=== PATIENT | female | born 1950 | race Caucasian/White ===

== ENCOUNTER 2025-02-15 15:26 | Emergency (ER) | payer MEDICARE, BC ==
--- NOTE | 2025-02-15 16:40 | ERPHSYRPT ---
- History of Present Illness Time Seen by Provider: 02/15/25 16:29 Source: patient, family Patient Subjective Stated Complaint: pt here for pain to right lower leg, she states pain is so bad she is unable to sleep at night well. no injury. Triage Nursing Assessment: pt alert, arrived per wc, resp easy, skin w/d/p, has slight swelling to lower right leg, no redness or swelling noted Physician History: Patient is a 74-year-old female. Some of the history is provided by the patient's daughter because the patient is very hard of hearing and does not like to talk. The patient has been complaining of right leg pain since Tuesday, 2 days ago. The patient did have to walk a longer distance than normal on Tuesday, 5 days ago, but did not start to have pain until 2 days ago. The patient's daughter is concerned that the patient is unable to sleep due to the pain. The patient is crying at night due to the pain. The patient's primary care provider instructed the patient not to take any other [id number] medications other than her diclofenac for her back and leg pain, so the patient has not taken anything else. The patient's daughter is concerned that the patient may have a blood clot. The patient has not had a blood clot in her leg or lungs before. Allergies/Adverse Reactions: No Known Drug Allergies Allergy (Verified 10/12/24 14:06) Home Medications: Amox Tr/Potass Clav. 875 mg [Augmentin 875-125 Tablet] 875 mg PO BID 01/14/24 [History] Mupirocin [Bactroban OINTMENT] 0 gm TOP TID 01/14/24 [History] Hx Tetanus, Diphtheria Vaccination/Date Given: Yes Hx Influenza Vaccination/Date Given: No Hx Pneumococcal Vaccination/Date Given: Yes Immunizations Up to Date: Yes Travel Risk - International Travel Have you traveled outside of the country in past 3 weeks: No - Emerging Infectious Disease Are you exhibiting symptoms associated with any current EIDs: No - Review of Systems Constitutional: No Fever Respiratory: No Cough, No Dyspnea, No Dyspnea on Exertion (CHARLES) Cardiac: No Chest Pain Abdominal/Gastrointestinal: No Symptoms Musculoskeletal: Other (Right lower extremity tenderness and mild swelling, neurovascularly intact) - Past Medical History Pertinent Past Medical History: No - Past Surgical History Past Surgical History: Yes Musculoskeletal: Orthopedic Surgery Other Surgical History: rt ankle with screws - Social History Smoking Status: Never smoker Exposure to second hand smoke: No Drug Use: none - Social Determinants of Health Will the patient participate in the screening: Yes Do you worry about a steady place to live?: No Do you have any problems with any of the following?: Pest (bugs,ants,or mice) In the past 12 months,have you had to go without utilities?: No Transportation Issues: No Has anyone in your support network made you feel unsafe?: No Have you or anyone in your house had to go w/o enough food: No Comment: with bed bugs - Nursing Vital Signs Nursing Vital Signs: Initial Vital Signs Blood Pressure 127/69 02/15/25 16:00 O2 Sat by Pulse Oximetry 89 L 02/15/25 16:00 Pain Scale Pain Intensity 0 - Physical Exam General Appearance: mild distress Eyes, Ears, Nose, Throat Exam: other (Very hard of hearing) Cardiovascular/Respiratory Exam: normal breath sounds, regular rate/rhythm Gastrointestinal/Abdominal Exam: non-tender, soft Hips Exam: right: pain, soft tissue tenderness Legs Exam: right leg: limited range of motion, soft tissue tenderness, swelling (Mild) Knees Exam: right knee: pain Ankle Exam: right ankle: non-tender, normal inspection Foot Exam: right foot: non-tender Neuro/Tendon Exam: normal sensation Mental Status Exam: alert Skin Exam: warm, dry SpO2 Interpretation: borderline oxygenation SpO2: 89 Ordered Tests: Active Orders 24 hr Category Date Time Status ACO SDOH Referral ONCE Cons 02/15/25 15:57 Active VENOUS UNILAT/LIMITED EXTREMIT [US] Stat Exams 02/15/25 16:38 Taken - Progress Progress Note: Received preliminary report from the tech that there was no DVT present. Discussed preliminary radiographic report. Explained that they would receive a call if the radiologist changed the report after reading the study. Will prescribe a muscle relaxer. Given the patient's daughter strict instructions for monitoring for over-sedation and falls while the patient is taking the muscle relaxer. Discussed supportive care measures. Instructed that the patient should follow-up with her primary care provider if symptoms continue. Patient's daughter expressed understanding. Medical Desision Making - Independent Historian Additional History obtained from: Family - Departure Departure Disposition: Home Clinical Impression: Leg pain Qualifiers: Laterality: right Qualified Code(s): M79.604 - Pain in right leg Condition: Stable Critical Care Time: No Referrals: SAMIRA SUBRAMANIAN NP [Primary Care Provider, UNKNOWN] - Follow up/PCP as directed Instructions: Leg Muscle Strain ED Additional Instructions: Follow up with your primary care provider if symptoms continue. Prescriptions: Methocarbamol [Robaxin] 500 mg PO TID 5 Days #15 tablet
[2025-02-15 18:10] VITALS: O2SAT 89
[2025-02-15 18:12] VITALS: RESP 16
[2025-02-15 19:33] VITALS: BP 161/80; PULSE 88
--- NOTE | 2025-02-15 21:55 | XRAY ---
Indication: Pain and swelling. Two-dimensional sonogram and color Doppler imaging major venous vessels right leg performed. Comparison: March 31, 2023 No thrombus seen in the examined deep venous vessels right leg including greater saphenous vein. Veins demonstrate normal compressibility. Venous waveforms are normal with and without augmentation. Impression: Right leg continues to be negative for DVT. Comment: Preliminary report was given.
== END 2025-02-15 19:17 | disposition home or self-care (01) ==
LOC: ED 15:26
DX: M79.661 Pain in right lower leg (principal); Z59.19 Other inadequate housing